=== PATIENT | male | born 1980 | race Caucasian/White ===

== ENCOUNTER → 2017-05-23 | Outpatient (CLI) | payer BC ==
[~2017-05-23] MED LIST: METHACHOLINE KIT (J7674) INH ONE
--- NOTE | 2017-05-23 16:42 | PFTRPT ---
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 The forced vital capacity is normal. The FEV1 is generally in proportion. The obstructive index is, therefore, normal. FLOW VOLUME LOOP: The expiratory limb of the flow volume loop suggests some nonspecific flow rate limitations. LUNG VOLUMES: The total lung capacity is normal. The residual volume is generally in proportion. DIFFUSION CAPACITY: The diffusion capacity is normal. HEMOGLOBIN: No hemoglobin is available for correction. AIRWAY MECHANICS: Airways resistance and conductance are normal. IMPRESSION: Nonspecific findings. Please correlate clinically. MTDD
--- NOTE | 2017-05-23 17:29 | PFTRPT ---
Tech: Albert Martinez IT CONSULTING MANAGER Age: 36 Sex: Male Race: Height: 71.50 Inches Weight: 213.00 Lbs BSA: 2.18 Diagnosis: R06.02 TECH NOTE: The test meet the ATS standards for acceptability and repeatability. The patient was given four puffs of albuterol for postbronchodilator. The patient did state that he had two cups of coffee early this morning at approximately 5: 30 AM. METHACHOLINE CHALLENGE REPORT: ORDERING PROVIDER: Marychuy Keys DO DATE OF SERVICE: 05/23/17 INTERPRETATION: The study was of excellent technical quality. Under protocol, methacholine was administered. Even after a maximal dose of 25 mg (188.875 CDUs) of methacholine , no provocation dose was ever achieved. IMPRESSION: Negative methacholine challenge study. MTDD
== END ==
LOC: M CARPUL 15:49
PROVIDERS: ATTEND Family Medicine
DX: R94.2 Abnormal results of pulmonary function studies (principal); R06.02 Shortness of breath
CPT/HCPCS: 94010; 94070; 94726; 94729; J7674

== ENCOUNTER → 2019-11-05 | Outpatient (REF) | payer BC | LOC: M LAB REF 14:31 | PROVIDERS: ATTEND Surgery | DX: Z30.2 Encounter for sterilization (principal) ==

== ENCOUNTER → 2022-02-16 | Outpatient (REF) | payer BC | LOC: M LAB REF 17:35 | PROVIDERS: ATTEND Nurse Practitioner Adult Health | DX: J02.0 Streptococcal pharyngitis (principal) ==